=== PATIENT | female | born 1980 | race Caucasian/White ===

== ENCOUNTER 2022-12-22 18:32 | Emergency (ER) | payer MEDICAID ==
[2022-12-22] MEDS ORDERED: hydrOXYzine HCl 50 MG/ML SDV IM ONE (19:35)
== END 2022-12-22 19:46 | disposition home or self-care (01) ==
LOC: VM.ED 18:32
DX: T63.441A Toxic effect of venom of bees, accidental (unintentional), initial encounter (principal); Z88.1 Allergy status to other antibiotic agents; Z88.6 Allergy status to analgesic agent
CPT/HCPCS: 96372; 99283; J3410

== ENCOUNTER 2023-04-11 12:55 | Emergency (ER) | payer MEDICAID ==
[2023-04-11] MEDS ORDERED: Sodium Chloride 0.9% 10 ML Syringe FLUSH PRN (13:16)
[2023-04-11] MEDS ORDERED: Ondansetron 4 MG/2 ML SDV IVPUSH ONE (13:17)
[2023-04-11] MEDS ORDERED: Lactated Ringers 1,000 ML IV ONE (13:17)
[2023-04-11] MEDS ORDERED: HYDROmorphone 0.5 MG/0.5 ML Syringe IVPUSH ONE (13:18)
[2023-04-11 13:30] LABS: BASOPHILS PERCENT AUTO 0.3 % (0.2-1.2); EOSINOPHILS ABSOLUTE AUTO 0.4 x10^3/uL (0.0-0.5); HEMATOCRIT 41.2 % (33.0-47.0); HEMOGLOBIN 14.7 g/dL (12.0-16.0); IMMATURE GRAN ABSOLUTE AUTO 0.01 x10^3/uL (0.00-0.07); LYMPHOCYTES ABSOLUTE AUTO 2.6 x10^3/uL (1.0-4.8); LYMPHOCYTES PERCENT AUTO 30.5 % (25.0-50.0); MEAN CORPUSCULAR HEMOGLOBIN 32.2 pg (26.0-32.0); MEAN CORPUSCULAR HGB CONC 35.7 g/dL (32.0-36.0); MEAN CORPUSCULAR VOLUME 90.2 fL (78.0-93.0); MONOCYTES ABSOLUTE AUTO 0.7 x10^3/uL (0.0-0.8); MONOCYTES PERCENT AUTO 7.5 % (2.0-11.0); NEUTROPHILS PERCENT AUTO 57.6 % (50.0-80.0); PLATELET COUNT,PLT 281 x10^3/uL (130-400); RED BLOOD CELL COUNT 4.57 x10^6/uL (4.00-5.50); WHITE BLOOD CELL COUNT,WBC 8.7 x10^3/uL (4.0-10.0)
[2023-04-11 13:45] LABS: APPEARANCE,URINE CLEAR (CLEAR); BILIRUBIN,URINE NEGATIVE (NEGATIVE); COLOR,URINE DARK YELLOW (YELLOW); GLUCOSE,URINE NEGATIVE (NEGATIVE); KETONES,URINE TRACE mg/dL (NEGATIVE); LEUKOCYTE ESTERASE,URINE NEGATIVE (NEGATIVE); NITRITE,URINE NEGATIVE (NEGATIVE); OCCULT BLOOD,URINE NEGATIVE (NEGATIVE); PROTEIN,URINE 30 mg/dL (NEGATIVE); UROBILINOGEN,URINE 0.2 EU/dL (0.2)
[2023-04-11 13:54] LABS: ALANINE AMINOTRANSFERASE,ALT 30 U/L (14-59); ALBUMIN 3.6 g/dL (3.4-5.0); ALKALINE PHOSPHATASE 74 U/L (46-116); ANION GAP 15.6 mmol/L (5-15); ASPARTATE AMNIOTRANSFERASE,AST 18 U/L (15-37); BILIRUBIN TOTAL 0.2 mg/dL (0.2-1.0); BLOOD UREA NITROGEN,BUN 13 mg/dL (7-18); CALCIUM 9.4 mg/dL (8.5-10.1); CARBON DIOXIDE,CO2 26 mmol/L (21-32); CHLORIDE,CL 102 mmol/L (98-107); CREATININE 0.7 mg/dL (0.55-1.02); ESTIMATED GFR 109 mL/min (>=60); GLUCOSE RANDOM 118 mg/dL (70-99); MAGNESIUM 1.6 mg/dL (1.8-2.4); POTASSIUM,K 3.6 mmol/L (3.5-5.1); PROTEIN TOTAL,TP 7.6 g/dL (6.4-8.2); SODIUM,NA 140 mmol/L (136-145)
[2023-04-11] MEDS ORDERED: Ketorolac 15 MG/ML SDV IVPUSH ONE (13:59)
[2023-04-11 14:01] LABS: LACTIC ACID 2.1 mmol/L (0.4-2.0)
[2023-04-11 14:02] LABS: AMORPHOUS SEDIMENT,URINE RARE; BACTERIA,URINE NOT SEEN /HPF (NOT SEEN); MUCUS,URINE RARE /LPF (NOT SEEN); RBC,URINE NOT SEEN /HPF (NOT SEEN); SQUAMOUS EPITHELIAL CELLS,UR FEW /HPF (NOT SEEN); WBC,URINE NOT SEEN /HPF (NOT SEEN)
[2023-04-11] MEDS ORDERED: Take Home: Ondansetron 4 MG Tab.DIS, 5 Tab Pack PO ONE (14:32)
== END 2023-04-11 14:47 | disposition home or self-care (01) ==
LOC: VM.ED 12:55
DX: K52.9 Noninfective gastroenteritis and colitis, unspecified (principal); F17.210 Nicotine dependence, cigarettes, uncomplicated; Z88.1 Allergy status to other antibiotic agents; Z79.899 Other long term (current) drug therapy
CPT/HCPCS: 36415; 80053; 81001; 83605; 83735; 85025; 86140; 96361; 96374; 96375; 99284; 99284-25; J1170; J1885; J2405; J7120; Q0162

== ENCOUNTER 2023-06-17 14:25 | Emergency (ER) | payer MEDICAID ==
[2023-06-17 15:20] LABS: CORONAVIRUS COVID-19 NAA NEGATIVE (NEGATIVE)
[2023-06-17 15:21] LABS: INFLUENZA A NAA NEGATIVE (NEGATIVE); INFLUENZA B NAA NEGATIVE (NEGATIVE)
== END 2023-06-17 15:37 | disposition home or self-care (01) ==
LOC: VM.ED 14:25
DX: J06.9 Acute upper respiratory infection, unspecified (principal); I10 Essential (primary) hypertension; F17.200 Nicotine dependence, unspecified, uncomplicated; Z88.6 Allergy status to analgesic agent; Z88.1 Allergy status to other antibiotic agents; Z88.8 Allergy status to other drugs, medicaments and biological substances; Z91.048 Other nonmedicinal substance allergy status
CPT/HCPCS: 0240U; 99283; 99284

== ENCOUNTER 2023-07-11 22:16 | Emergency (ER) | payer MEDICAID ==
[2023-07-11] MEDS: Take Home: Doxycycline 100 MG Cap, 4 Cap Pack PO ONE (22:55)
[2023-07-11] MEDS: predniSONE 20 MG Tab PO ONE (22:59)
[2023-07-12] MEDS: Take Home: predniSONE 20 MG, 2 Tab Pack PO ONE (04:06)
== END 2023-07-11 23:03 | disposition home or self-care (01) ==
LOC: VM.ED 22:16
DX: L02.01 Cutaneous abscess of face (principal); J45.909 Unspecified asthma, uncomplicated; H69.93 Unspecified Eustachian tube disorder, bilateral; I10 Essential (primary) hypertension; E78.00 Pure hypercholesterolemia, unspecified; Z90.710 Acquired absence of both cervix and uterus; F17.210 Nicotine dependence, cigarettes, uncomplicated; Z88.5 Allergy status to narcotic agent; Z88.8 Allergy status to other drugs, medicaments and biological substances; Z88.6 Allergy status to analgesic agent; Z88.1 Allergy status to other antibiotic agents
CPT/HCPCS: 99282; 99284; A9270-GY; J7512

== ENCOUNTER 2023-07-22 19:58 | Emergency (ER) | payer MEDICAID ==
[2023-07-22 21:21] LABS: CORONAVIRUS COVID-19 NAA NEGATIVE (NEGATIVE); INFLUENZA A NAA NEGATIVE (NEGATIVE); INFLUENZA B NAA NEGATIVE (NEGATIVE); RESPIRATORY SYNCYTIAL VIR NAA NEGATIVE (NEGATIVE)
[2023-07-22] MEDS: Take Home: Amoxicillin/Clavulanate K 875-125 MG Tab, 2 Tab Pack PO ONE (21:35)
== END 2023-07-22 21:38 | disposition home or self-care (01) ==
LOC: VM.ED 19:58
DX: J02.9 Acute pharyngitis, unspecified (principal); I10 Essential (primary) hypertension; Z90.710 Acquired absence of both cervix and uterus; Z88.5 Allergy status to narcotic agent; Z88.1 Allergy status to other antibiotic agents; Z88.6 Allergy status to analgesic agent; Z88.8 Allergy status to other drugs, medicaments and biological substances; Z20.822 Contact with and (suspected) exposure to COVID-19
CPT/HCPCS: 0241U; 71045; 87651; 99283; A9270

== ENCOUNTER 2023-09-06 00:15 | Emergency (ER) | payer MEDICAID ==
[2023-09-06] MEDS ORDERED: Orphenadrine 60 MG/2 ML Inj IM ONE (00:34)
[2023-09-06] MEDS ORDERED: Ketorolac 30 MG/ML SDV IM ONE (00:34)
== END 2023-09-06 01:00 | disposition home or self-care (01) ==
LOC: VM.ED 00:15
DX: M54.50 Low back pain, unspecified (principal); G89.29 Other chronic pain; I10 Essential (primary) hypertension; E78.00 Pure hypercholesterolemia, unspecified; F17.210 Nicotine dependence, cigarettes, uncomplicated; Z86.16 Personal history of COVID-19; Z79.899 Other long term (current) drug therapy; Z88.8 Allergy status to other drugs, medicaments and biological substances; Z88.5 Allergy status to narcotic agent; Z88.6 Allergy status to analgesic agent; Z88.1 Allergy status to other antibiotic agents
CPT/HCPCS: 96372; 99283; 99284; J1885; J2360

== ENCOUNTER 2024-03-23 02:00 | Emergency (ER) | payer MEDICAID | END 2024-03-23 02:30 | disposition home or self-care (01) | LOC: VM.ED 02:00 | DX: E11.649 Type 2 diabetes mellitus with hypoglycemia without coma (principal); I10 Essential (primary) hypertension; Z79.84 Long term (current) use of oral hypoglycemic drugs; Z79.899 Other long term (current) drug therapy; Z88.1 Allergy status to other antibiotic agents; Z88.8 Allergy status to other drugs, medicaments and biological substances; Z88.6 Allergy status to analgesic agent | CPT/HCPCS: 82947; 99284 ==

== ENCOUNTER 2024-05-04 22:14 | Emergency (ER) | payer MEDICAID ==
[2024-05-04] MEDS: Take Home: Ondansetron 4 MG Tab.DIS, 5 Tab Pack PO ONE (22:50)
== END 2024-05-04 23:13 | disposition home or self-care (01) ==
LOC: VM.ED 22:14
DX: R11.2 Nausea with vomiting, unspecified (principal); I10 Essential (primary) hypertension; E78.00 Pure hypercholesterolemia, unspecified; E11.9 Type 2 diabetes mellitus without complications; Z88.8 Allergy status to other drugs, medicaments and biological substances; Z79.84 Long term (current) use of oral hypoglycemic drugs; Z90.710 Acquired absence of both cervix and uterus
CPT/HCPCS: 82947; 99283; 99284; Q0162

== ENCOUNTER 2024-05-24 19:39 | Emergency (ER) | payer MEDICAID ==
[2024-05-24 20:24] VITALS: BP 130/80; PULSE 88
[2024-05-24] MEDS: Ibuprofen 200 MG Tab PO ONE (20:29)
== END 2024-05-24 20:30 | disposition home or self-care (01) ==
LOC: VM.ED 19:39
DX: M25.562 Pain in left knee (principal); I10 Essential (primary) hypertension; J45.909 Unspecified asthma, uncomplicated; E11.9 Type 2 diabetes mellitus without complications; Z90.710 Acquired absence of both cervix and uterus; Z79.899 Other long term (current) drug therapy; Z79.84 Long term (current) use of oral hypoglycemic drugs; Z88.2 Allergy status to sulfonamides; Z88.8 Allergy status to other drugs, medicaments and biological substances; Z88.1 Allergy status to other antibiotic agents
CPT/HCPCS: 99283; A9270

== ENCOUNTER 2024-06-15 22:55 | Emergency (ER) | payer MEDICAID ==
[2024-06-15 23:29] LABS: BASOPHILS PERCENT AUTO 0.4 % (0.2-1.2); EOSINOPHILS ABSOLUTE AUTO 0.3 x10^3/uL (0.0-0.5); EOSINOPHILS PERCENT AUTO 2.9 % (0.0-4.0); HEMATOCRIT 43.8 % (33.0-47.0); HEMOGLOBIN 14.9 g/dL (12.0-16.0); IMMATURE GRAN ABSOLUTE AUTO 0.02 x10^3/uL (0.00-0.07); LYMPHOCYTES ABSOLUTE AUTO 3.4 x10^3/uL (1.0-4.8); LYMPHOCYTES PERCENT AUTO 36.3 % (25.0-50.0); MEAN CORPUSCULAR HEMOGLOBIN 30.4 pg (26.0-32.0); MEAN CORPUSCULAR VOLUME 89.4 fL (78.0-93.0); MONOCYTES ABSOLUTE AUTO 0.7 x10^3/uL (0.0-0.8); MONOCYTES PERCENT AUTO 7.9 % (2.0-11.0); NEUTROPHILS ABSOLUTE AUTO 4.8 x10^3/uL (1.8-7.7); NEUTROPHILS PERCENT AUTO 52.3 % (50.0-80.0); PLATELET COUNT,PLT 319 x10^3/uL (130-400); WHITE BLOOD CELL COUNT,WBC 9.3 x10^3/uL (4.0-10.0)
[2024-06-16] MEDS: Take Home: Amoxicillin 875 MG Tab, 2 Tab Pack PO ONE (00:04)
== END 2024-06-16 00:04 | disposition home or self-care (01) ==
LOC: VM.ED 22:55
DX: J40 Bronchitis, not specified as acute or chronic (principal); H66.91 Otitis media, unspecified, right ear; I10 Essential (primary) hypertension; E11.9 Type 2 diabetes mellitus without complications; Z90.710 Acquired absence of both cervix and uterus; Z88.6 Allergy status to analgesic agent; Z88.8 Allergy status to other drugs, medicaments and biological substances; Z79.2 Long term (current) use of antibiotics; Z79.84 Long term (current) use of oral hypoglycemic drugs; Z79.899 Other long term (current) drug therapy
CPT/HCPCS: 36415; 85025; 87428-QW; 87651-QW; 99283; A9270-GY

== ENCOUNTER 2024-06-30 15:56 | Emergency (ER) | payer MEDICAID ==
[2024-06-30] MEDS: Take Home: Ondansetron 4 MG Tab.DIS, 5 Tab Pack PO ONE (16:49)
== END 2024-06-30 16:51 | disposition home or self-care (01) ==
LOC: VM.ED 15:56
DX: R19.7 Diarrhea, unspecified (principal); I10 Essential (primary) hypertension; E11.9 Type 2 diabetes mellitus without complications; Z90.49 Acquired absence of other specified parts of digestive tract; Z90.710 Acquired absence of both cervix and uterus; Z79.899 Other long term (current) drug therapy; Z79.84 Long term (current) use of oral hypoglycemic drugs; Z88.6 Allergy status to analgesic agent; Z88.8 Allergy status to other drugs, medicaments and biological substances; Z88.1 Allergy status to other antibiotic agents
CPT/HCPCS: 99283; Q0162

== ENCOUNTER 2024-09-17 07:54 | Day surgery (SDC) | payer MEDICAID ==
[~2024-09-17 07:54] MED LIST: Brimonidine 0.2% Ophth Soln 5 ML Bottle ONE; Cyclopentolate 1% Opth Soln 2 ML Bottle EYELF SCH; Dexamethasone/Neomycin/Polymyxin B Ophth Oint 3.5 GM Tube ONE; Lidocaine 1% 2 ML ONE; Moxifloxacin 0.5% Ophth Soln 3 ML Bottle EYELF SCH; Phenylephrine 2.5% Ophth Soln 2 ML Bot EYELF SCH; Phenyleprhine/Ketorolac 4 ML Vial ONE; Povidone-Iodine 5% Sterile Ophth Soln 30 ML Bottle ONE; Proparacaine 0.5% Ophth Soln 15 ML Bottle ONE; Tropicamide 1% Ophth Soln 3 ML Bottle EYELF SCH; acetaZOLAMIDE 500 MG Cap.ER PO SCH
[2024-09-17] MEDS: Tropicamide 1% Ophth Soln 3 ML Bottle EYELF SCH (08:00)
[2024-09-17] MEDS: Cyclopentolate 1% Opth Soln 2 ML Bottle EYELF SCH (08:00)
[2024-09-17] MEDS: Phenylephrine 2.5% Ophth Soln 2 ML Bot EYELF SCH (08:00)
[2024-09-17] MEDS ORDERED: fentaNYL 100 MCG/2 ML SDV ONE (08:12)
[2024-09-17] MEDS ORDERED: Midazolam 1 MG/ML 2 ML SDV ONE (08:12)
[2024-09-17] MEDS: Moxifloxacin 0.5% Ophth Soln 3 ML Bottle EYELF SCH (08:27)
[2024-09-17] MEDS ORDERED: ceFAZolin 500 MG Vial ONE (09:00)
[2024-09-17] MEDS: Phenyleprhine/Ketorolac 4 ML Vial IO ONE (09:21)
[2024-09-17] MEDS: Moxifloxacin 0.5% Ophth Soln 3 ML Bottle EYELF ONE (09:21)
[2024-09-17] MEDS: Balanced Salt Solution Ophth Irrig 500 ML Bottle IOCULAR ONE (09:21)
[2024-09-17] MEDS: Chondroitin Sulfate/Hyaluronate Sodium Ophth Inj 0.5 ML Syringe IOCULAR ONE (09:22)
[2024-09-17] MEDS: Lidocaine 1% PF 2 ML SDV INFILT ONE (09:22)
[2024-09-17] MEDS: Povidone-Iodine 5% Sterile Ophth Soln 30 ML Bottle EYELF ONE (09:23)
[2024-09-17] MEDS: Brimonidine 0.2% Ophth Soln 5 ML Bottle EYELF ONE (09:23)
[2024-09-17] MEDS: Dexamethasone/Neomycin/Polymyxin B Ophth Oint 3.5 GM Tube EYELF ONE (09:23)
[2024-09-17] MEDS: Tetracaine HCl/PF 0.5% 4 ML Bottle EYELF ONE (09:24)
[2024-09-17] MEDS: acetaZOLAMIDE 500 MG Cap.ER PO SCH (09:53)
== END 2024-09-17 10:15 | disposition home or self-care (01) ==
LOC: VM.SDS 07:54
PROVIDERS: ATTEND Ophthalmology
DX: E11.36 Type 2 diabetes mellitus with diabetic cataract (principal); H26.8 Other specified cataract; H40.1121 Primary open-angle glaucoma, left eye, mild stage; E11.59 Type 2 diabetes mellitus with other circulatory complications; E11.69 Type 2 diabetes mellitus with other specified complication; I10 Essential (primary) hypertension; E78.5 Hyperlipidemia, unspecified; F33.1 Major depressive disorder, recurrent, moderate; E66.813 Obesity, class 3; E03.9 Hypothyroidism, unspecified; J45.30 Mild persistent asthma, uncomplicated; K21.9 Gastro-esophageal reflux disease without esophagitis; Z79.890 Hormone replacement therapy; Z79.899 Other long term (current) drug therapy; Z88.8 Allergy status to other drugs, medicaments and biological substances
CPT/HCPCS: 00142; 82947; A9270-GY; J0690; J1097; J2250; J3010; J3490

== ENCOUNTER → 2024-10-15 | Day surgery (SDC) | payer MEDICAID ==
[~2024-10-15] MED LIST changes: -Cyclopentolate 1% Opth Soln 2 ML Bottle EYELF SCH; +Midazolam 1 MG/ML 2 ML SDV ONE; -Moxifloxacin 0.5% Ophth Soln 3 ML Bottle EYELF SCH; -Phenylephrine 2.5% Ophth Soln 2 ML Bot EYELF SCH; +Sodium Chloride 0.9% 10 ML Syringe FLUSH PRN; -Tropicamide 1% Ophth Soln 3 ML Bottle EYELF SCH; +acetaZOLAMIDE 500 MG Cap.ER PO ONE; -acetaZOLAMIDE 500 MG Cap.ER PO SCH; +fentaNYL 100 MCG/2 ML SDV ONE
[2024-10-15] MEDS: Phenylephrine 2.5% Ophth Soln 2 ML Bot EYERT SCH (07:07)
[2024-10-15] MEDS: Tropicamide 1% Ophth Soln 3 ML Bottle EYERT SCH (07:07)
[2024-10-15] MEDS: Cyclopentolate 1% Opth Soln 2 ML Bottle EYERT SCH (07:08)
[2024-10-15] MEDS: Moxifloxacin 0.5% Ophth Soln 3 ML Bottle EYERT ONE (07:30)
== END ==
LOC: VM.SDS 06:55
PROVIDERS: ATTEND Ophthalmology
DX: H26.9 Unspecified cataract (principal); Z53.8 Procedure and treatment not carried out for other reasons
CPT/HCPCS: 82947; A9270-GY; J2250; J3010; J3490

== ENCOUNTER 2025-02-08 08:20 | Emergency (ER) | payer MEDICAID | END 2025-02-08 08:48 | disposition home or self-care (01) | LOC: VM.ED 08:20 | DX: S80.01XA Contusion of right knee, initial encounter (principal); E78.00 Pure hypercholesterolemia, unspecified; I10 Essential (primary) hypertension; J45.909 Unspecified asthma, uncomplicated; E03.9 Hypothyroidism, unspecified; E66.9 Obesity, unspecified; E11.9 Type 2 diabetes mellitus without complications; Z88.8 Allergy status to other drugs, medicaments and biological substances; Z79.899 Other long term (current) drug therapy; Z79.890 Hormone replacement therapy; Z79.84 Long term (current) use of oral hypoglycemic drugs; Z90.710 Acquired absence of both cervix and uterus; W18.2XXA Fall in (into) shower or empty bathtub, initial encounter | CPT/HCPCS: 99283 ==

== ENCOUNTER 2025-04-12 21:32 | Emergency (ER) | payer MEDICAID | END 2025-04-12 23:17 | disposition home or self-care (01) | LOC: VM.ED 21:32 | DX: G89.29 Other chronic pain (principal); M54.50 Low back pain, unspecified; I10 Essential (primary) hypertension; E78.00 Pure hypercholesterolemia, unspecified; J45.909 Unspecified asthma, uncomplicated; K21.9 Gastro-esophageal reflux disease without esophagitis; E11.9 Type 2 diabetes mellitus without complications; E03.9 Hypothyroidism, unspecified; E66.9 Obesity, unspecified; Z68.41 Body mass index [BMI] 40.0-44.9, adult; Z90.710 Acquired absence of both cervix and uterus; Z88.6 Allergy status to analgesic agent; Z88.8 Allergy status to other drugs, medicaments and biological substances; Z79.84 Long term (current) use of oral hypoglycemic drugs; Z79.51 Long term (current) use of inhaled steroids; Z79.890 Hormone replacement therapy; Z79.899 Other long term (current) drug therapy | CPT/HCPCS: 99283; 99284 ==

== ENCOUNTER 2025-04-17 00:45 | Emergency (ER) | payer MEDICAID ==
[2025-04-17 01:29] LABS: BASOPHILS ABSOLUTE AUTO 0.0 x10^3/uL (0.0-0.2); BASOPHILS PERCENT AUTO 0.2 % (0.2-1.2); EOSINOPHILS ABSOLUTE AUTO 0.3 x10^3/uL (0.0-0.5); EOSINOPHILS PERCENT AUTO 2.3 % (0.0-4.0); IMMATURE GRAN ABSOLUTE AUTO 0.02 x10^3/uL (0.00-0.07); IMMATURE GRAN PERCENT AUTO 0.20 % (0.00-0.43); LYMPHOCYTES ABSOLUTE AUTO 2.0 x10^3/uL (1.0-4.8); LYMPHOCYTES PERCENT AUTO 16.0 % (25.0-50.0); MONOCYTES ABSOLUTE AUTO 0.7 x10^3/uL (0.0-0.8); MONOCYTES PERCENT AUTO 5.4 % (2.0-11.0); NEUTROPHILS ABSOLUTE AUTO 9.4 x10^3/uL (1.8-7.7); NEUTROPHILS PERCENT AUTO 75.9 % (50.0-80.0); PLATELET COUNT,PLT 310 x10^3/uL (130-400); RED BLOOD CELL COUNT 4.97 x10^6/uL (4.00-5.50); WHITE BLOOD CELL COUNT,WBC 12.4 x10^3/uL (4.0-10.0)
[2025-04-17 01:34] LABS: A/G RATIO 0.89; ALANINE AMINOTRANSFERASE,ALT 30 U/L (14-59); ASPARTATE AMNIOTRANSFERASE,AST < 10 U/L (15-37); BILIRUBIN TOTAL 0.5 mg/dL (0.2-1.0); BLOOD UREA NITROGEN,BUN 6 mg/dL (7-18); CARBON DIOXIDE,CO2 27 mmol/L (21-32); CHLORIDE,CL 104 mmol/L (98-107); CREATININE 1.0 mg/dL (0.55-1.02); EST CRCL DRUG DOSING (CG) 55.60 mL/min; ESTIMATED GFR 70 mL/min (>=60); GLUCOSE RANDOM 181 mg/dL (70-99); POTASSIUM,K 4.9 mmol/L (3.5-5.1); PROTEIN TOTAL,TP 7.2 g/dL (6.4-8.2); SODIUM,NA 142 mmol/L (136-145)
[2025-04-17] MEDS: Ketorolac 30 MG/ML SDV IM ONE (01:46)
== END 2025-04-17 01:57 | disposition home or self-care (01) ==
LOC: VM.ED 00:45
DX: K52.9 Noninfective gastroenteritis and colitis, unspecified (principal); I10 Essential (primary) hypertension; E78.00 Pure hypercholesterolemia, unspecified; J44.9 Chronic obstructive pulmonary disease, unspecified; K21.9 Gastro-esophageal reflux disease without esophagitis; E11.9 Type 2 diabetes mellitus without complications; E03.9 Hypothyroidism, unspecified; Z88.6 Allergy status to analgesic agent; Z88.8 Allergy status to other drugs, medicaments and biological substances; Z88.1 Allergy status to other antibiotic agents; Z79.84 Long term (current) use of oral hypoglycemic drugs; Z79.899 Other long term (current) drug therapy
CPT/HCPCS: 36415; 80053; 85025; 96372; 99284; J1885